=== PATIENT | female | born 1960 | race Caucasian/White ===

== ENCOUNTER 2021-04-23 15:30 | Outpatient (REF) | payer OTHER, SELFPAY ==
--- NOTE | 2021-04-23 14:30 | PAPFT_PTH ---
PATIENT: Mel Tsang [id number] AGE/SX: 60/F ROOM: RE04/23/[address]: Taylor Batista : 1960 BED: DIS: 04/23/2021 SPEC #: [id number] RECD: 04/24/21 12:52 STATUS: LEANN REJazz #: [id number] JAQUAN: 04/23/21 14:[address]: Taylor Batista DEPT: [facility] Cytology RECD BY: Sydnie Crabtree Tissues: 1 - CX/ENDOCX FOR PAP SMEARS Procedures: PAP THIN PREP/[facility] Screening HPV DNA PROBE Comments: [id number]
== END 2021-04-23 15:31 | disposition home or self-care (01) ==
LOC: NCHCN 15:30
PROVIDERS: PCP Physician Assistant Medical; Visit Provider Physician Assistant Medical
DX: Z12.4 Encounter for screening for malignant neoplasm of cervix (principal); Z01.419 Encounter for gynecological examination (general) (routine) without abnormal findings; Z11.51 Encounter for screening for human papillomavirus (HPV)
CPT/HCPCS: 88142; 87624

== ENCOUNTER 2022-04-24 15:25 | Outpatient (REF) | payer OTHER, SELFPAY | END 2022-04-24 15:26 | disposition home or self-care (01) | LOC: NCHCN 15:25 | PROVIDERS: PCP Physician Assistant Medical; Visit Provider Physician Assistant Medical | DX: N76.0 Acute vaginitis (principal) | CPT/HCPCS: 87480; 87510; 87660 ==

== ENCOUNTER 2023-06-21 14:06 | Outpatient (REF) | payer OTHER, SELFPAY | END 2023-06-21 14:07 | disposition home or self-care (01) | LOC: NCHCN 14:06 | PROVIDERS: PCP Physician Assistant Medical; Visit Provider Family Medicine | DX: N95.2 Postmenopausal atrophic vaginitis (principal); B37.32 Chronic candidiasis of vulva and vagina | CPT/HCPCS: 87480; 87510; 87660 ==

== ENCOUNTER 2023-08-31 16:53 | Outpatient (REF) | payer OTHER, SELFPAY ==
[2023-08-31 18:39] LABS: Abs Immature Grans 0.01 10^3/uL (0.0-0.06); Absolute Basophil Count 0.03 10^3/uL (0.0-0.2); Absolute Eosinophil Count 0.24 10^3/uL (0.0-0.7); Absolute Lymphocyte Count 2.24 10^3/uL (1.2-3.4); Absolute Monocyte Count 0.67 10^3/uL (0.1-0.8); Absolute Neutrophil Count 2.74 10^3/uL (1.2-6.7); Basophils % 0.5; HCT 38.3 % (36.0-46.0); HGB 12.7 g/dL (11.2-15.7); Immature Grans % 0.2; Lymphocytes % 37.8; MCH 29.1 pg (27.0-33.0); MCHC 33.2 % (32.0-36.0); MCV 88 fL (80-95); MPV 9.2 fL (8.0-11.0); Monocytes % 11.3; Neutrophils % 46.2; Platelet Count 293 10^3/uL (130-400); RBC 4.36 10^6/uL (3.93-5.22); RDW 12.3 % (11.7-14.6); RDW-SD 39.8 fL; WBC 5.93 10^3/uL (4.4-10.8)
[2023-08-31 18:57] LABS: ALT 46 U/L (14-59); AST 29 U/L (15-37); Albumin 3.6 g/dL (3.4-5.0); Alkaline Phosphatase 66 U/L (46-116); Anion Gap 8.1 mmol/L (3-11); BUN 12 mg/dL (7-18); Bilirubin, Total 0.4 mg/dL (0.2-1.0); CO2 27.9 mmol/L (21.0-32.0); CREATININE 0.8 mg/dL (0.55-1.02); Calcium 9.6 mg/dL (8.5-10.1); Chloride 103 mmol/L (98-107); Estimated GFR 82.23 (mL/min/1.73m2); Glucose 98 mg/dL (74-106); Magnesium 2.3 mg/dL (1.8-2.4); Potassium 4.2 mmol/L (3.5-5.1); Sodium 139 mmol/L (136-145); Total Protein 6.6 g/dL (6.4-8.2)
[2023-08-31 18:58] LABS: TSH (W/Ref FT4) < 0.01 uIU/mL (0.36-3.74)
[2023-08-31 19:08] LABS: Hemoglobin A1C 5.4 % (<5.7)
[2023-08-31 19:15] LABS: FREE T4 1.94 ng/dL (0.76-1.46)
[2023-09-01 23:01] LABS: Thyroglobulin Antibody 56 U/mL (<=60); Thyroperoxidase Antibody <28 U/mL (<=60)
[2023-09-08 16:46] LABS: Thyroid Stimulating Immunoglob 3.9 TSI index (<=1.3)
== END 2023-08-31 16:54 | disposition home or self-care (01) ==
LOC: NCHCN 16:53
PROVIDERS: PCP Physician Assistant Medical; Visit Provider Physician Assistant Medical
DX: R63.4 Abnormal weight loss (principal)
CPT/HCPCS: 80053; 86376; 83036; 83735; 84439; 84443; 84445; 85025

== ENCOUNTER 2024-02-29 09:14 | Outpatient (REF) | payer OTHER, SELFPAY ==
[2024-02-29 15:49] LABS: FREE T4 0.84 ng/dL (0.76-1.46); TSH 5.25 uIU/Ml (0.36-3.74)
== END 2024-02-29 09:15 | disposition home or self-care (01) ==
LOC: NCHCN 09:14
PROVIDERS: PCP Physician Assistant Medical; Visit Provider Physician Assistant Medical
DX: E05.90 Thyrotoxicosis, unspecified without thyrotoxic crisis or storm (principal)
CPT/HCPCS: 84439; 84443

== ENCOUNTER 2024-12-01 19:19 | Outpatient (REF) | payer OTHER, SELFPAY | END 2024-12-01 19:20 | disposition home or self-care (01) | LOC: NCHCN 19:19 | PROVIDERS: PCP Physician Assistant Medical; Visit Provider Family Medicine | DX: R10.9 Unspecified abdominal pain (principal) | CPT/HCPCS: 87086 ==